=== PATIENT | female | born 1950 | race Caucasian/White ===

== ENCOUNTER → 2017-12-26 | Outpatient (CLI) | payer MEDICARE, OTHER ==
[2017-12-26 11:06] LABS: HEMATOCRIT 46.6 % (35.0-46.0); HEMOGLOBIN 15.2 GM/DL (11.6-15.3); MEAN CELL VOLUME 90.9 FL (80.0-100.0); MEAN CORPUSCULAR HEMOGLOBIN 29.6 PG (27.0-34.0); MEAN CORPUSCULAR HGB CONC 32.6 % (32.0-36.0); PLATELET COUNT 231 TH/MM3 (150-450); RED BLOOD COUNT 5.13 MIL/MM3 (4.00-5.30); RED CELL DISTRIBUTION WIDTH 13.5 % (11.6-17.2)
[2017-12-26 11:07] LABS: CHLORIDE 104 MEQ/L (98-107); SODIUM (NA) 139 MEQ/L (136-145)
[2017-12-26 11:11] LABS: CALCIUM 8.9 MG/DL (8.5-10.1)
[2017-12-26 11:12] LABS: BLOOD UREA NITROGEN 14 MG/DL (7-18); GLUCOSE,RANDOM 102 MG/DL (74-106)
[2017-12-26 11:15] LABS: ALT (GPT) 17 U/L (10-53); AST (GOT) 14 U/L (15-37); GLOMERULAR FILTRATION RATE 55 ML/MIN (>89)
[2017-12-26 11:16] LABS: TOTAL BILIRUBIN ADULT 1.5 MG/DL (0.2-1.0); TOTAL PROTEIN 7.8 GM/DL (6.4-8.2)
[2017-12-26 11:18] LABS: ALKALINE PHOSPHATASE 60 U/L (45-117)
[2017-12-26 13:11] LABS: THYROXINE (T4) 11.2 MCG/DL (4.8-13.9)
== END ==
LOC: PLAB 10:25
PROVIDERS: ATTEND Emergency Medicine
DX: R53.81 Other malaise (principal); H05.229 Edema of unspecified orbit
CPT/HCPCS: 36415; 80053; 84436; 84443; 85027